=== PATIENT | male | born 1980 | race Caucasian/White ===

== ENCOUNTER 2017-08-09 06:35 | Emergency (ER) | payer BC ==
[2017-08-09] MEDS ORDERED: PROPARACAINE/FLUORESCEIN SOD 5 ML OPHT.BTL ONE (06:55)
--- NOTE | 2017-08-09 07:02 | EDPHY ---
H & P Stated Complaint: R EYE SWELLING, HTN X 1 WEEK Time Seen by Provider: 08/09/17 06:59 HPI/ROS: CHIEF COMPLAINT: 1. Right eye redness irritation 2. High blood pressure HISTORY OF PRESENT ILLNESS: The patient presents the ED for evaluation of 4 days of right eye redness and irritation and high blood pressure. The patient was seen at urgent care and diagnosed with a questionable subconjunctival hemorrhage. The patient does not were contact lenses. He was not started on an antibiotic eyedrops. The patient denies any allergic symptoms of rhinorrhea or nasal congestion. The patient has no prior history of hypertension. He has been checking his blood pressure at home over the past 4 days and has had blood pressure readings in the 160/100 range. Today the patient's systolic blood pressure was 178 prompting his visit to the emergency department. The patient denies any headache. He denies visual changes. He denies any acute neurologic complaints. REVIEW OF SYSTEMS: A comprehensive 10 point review of systems is otherwise negative aside from elements mentioned in the history of present illness. 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 Pupils: equal round and reactive to light EOMI Skin: no proptosis, no periorbital erythema or swelling, no vesicles Conjunctivae: Chemosis, conjunctival injection Cornea: No corneal abrasion noted on fluorescein exam Anterior chamber: normal, no hyphema or hypopyon ENT, Mouth: Mucous membranes moist Respiratory: There are no retractions, lungs are clear to auscultation Cardiovascular: Regular rate and rhythm Gastrointestinal: Abdomen is soft and nontender, no masses, bowel sounds normal Neurological: A&O, normal motor function, normal sensory exam, normal cranial nerves Skin: Warm and dry, no rashes Musculoskeletal: Neck is supple nontender Extremities: symmetrical, full range of motion Psychiatric: Patient is oriented X 3, there is no agitation Constitutional: Initial Vital Signs Temperature (C) 36.6 C 08/09/17 06:40 Heart Rate 98 08/09/17 06:40 Respiratory Rate 16 08/09/17 06:40 Blood Pressure 177/114 H 08/09/17 06:40 O2 Sat (%) 95 08/09/17 06:40 O2 Delivery Mode Room Air Allergies/Adverse Reactions: Penicillins Allergy (Verified 08/09/17 06:40) Home Medications: Medication Instructions Recorded Ofloxacin 0.3% [Ocuflox 0.3% (RX)] 1 drops RTEYE 5XD #1 btl 08/09/17 Medical Decision Making ED Course/Re-evaluation: The patient presents to the ED with right eye conjunctivitis. He will be started on Ocuflox eyedrops. Additionally, the patient is noted to have hypertension. The patient has no evidence of a hypertensive emergency or urgency. The patient will keep a log of his blood pressure this week. He will follow up with his primary care provider in [place] on August 15. The patient will be discharged home with customary aftercare instructions and return precautions. Departure - Departure Disposition: Home, Routine, Self-Care Clinical Impression: Acute conjunctivitis of right eye, Hypertension Condition: Good Instructions: Hypertension (ED) Additional Instructions: 1. Antibiotic eyedrops 1 drop to right eye 5 times a day for next week. 2. Please follow up with your primary care provider on August 15 to review your blood pressure log. 3. Return to the ED for markedly worsening symptoms, severe headache, chest pain , difficulty breathing, numbness, weakness or other concerns. Referrals: NONE *PRIMARY CARE P,. [Primary Care Provider] - As per Instructions Prescriptions: Ofloxacin 0.3% [Ocuflox 0.3% (RX)] 1 drops RTEYE 5XD #1 btl
[2017-08-09 07:47] VITALS: BP 159/104
== END 2017-08-09 07:40 | disposition home or self-care (01) ==
DX: H10.31 Unspecified acute conjunctivitis, right eye (principal); I10 Essential (primary) hypertension; G20 Parkinson's disease; Z87.891 Personal history of nicotine dependence